=== PATIENT | female | born 1975 | race Caucasian/White ===

== ENCOUNTER → 2018-04-18 | Outpatient (CLI) | payer OTHER | END | disposition home or self-care (01) | LOC: KCIC MAMMO 12:17 | PROVIDERS: ATTEND Family Medicine | DX: Z12.31 Encounter for screening mammogram for malignant neoplasm of breast (principal) | CPT/HCPCS: 77067 ==

== ENCOUNTER → 2018-05-02 | Outpatient (CLI) | payer OTHER ==
--- NOTE | 2018-05-02 09:11 | KCIC ---
EXAM: Bilateral breast sonogram. HISTORY: 42-year-old female presents for sonographic evaluation of areas of nodularity demonstrated on a screening mammogram dated 04/18/2018. TECHNIQUE: Sonographic imaging of both breasts including all 4 quadrants and the retroareolar regions was performed. COMPARISON: None. FINDINGS: Sonographic imaging of the right breast demonstrates several small suspected complex cystic and fibrocystic lesions. For reference purposes, there is a 6.5 mm suspected fibrocystic lesion at the 10:00 position 4.5 cm from the nipple, 4.8 mm and 3.9 mm benign fibrocystic lesions at the 10:30 o'clock position 4 cm from the nipple, and a 3.1 mm benign fibrocystic lesion at the 9:30 o'clock position 7 cm from the nipple. Sonographic imaging of the left breast demonstrates several suspected complex cystic and fibrocystic lesions. For reference purposes, there is a 5.0 cm heterogeneous hypoechoic lesion at the 1:00 position 2 cm per the nipple, possibly a fibrocystic lesion or cluster of cysts. There is a simple cyst at the 1:00 position 3 cm from the nipple measuring 4.5 mm. There is a complex cyst or benign fibrocystic lesion at the 1:00 position 6 cm from the nipple measuring 5.9 mm. There is a complex cyst at the 3:00 position 5.5 cm from the nipple measuring 7.9 mm. IMPRESSION: 1. Multiple suspected complex cystic and fibrocystic lesions throughout both breasts, the largest of which measures 7.9 mm at the 3:00 position of the left breast. The sonographic appearance and multiplicity of these lesions favors benignity. These lesions likely correspond with areas of nodularity on the screening mammogram dated 04/18/2018. 2. BI-RADS Category 3: Probably benign finding(s). Short term follow up with a diagnostic diagnostic mammogram and sonogram in 6 months is recommended to confirm stability. Electronically signed by: Miranda Colunga MD (05/02/2018 9:08 AM) [facility]
== END | disposition home or self-care (01) ==
LOC: KCIC US 07:46
PROVIDERS: ATTEND Family Medicine
DX: R92.8 Other abnormal and inconclusive findings on diagnostic imaging of breast (principal)
CPT/HCPCS: 76641

== ENCOUNTER → 2019-08-01 | Outpatient (CLI) | payer OTHER ==
--- NOTE | 2019-08-02 16:05 | KCIC ---
Bilateral diagnostic digital mammograms: Reason for examination: 6 month follow-up for nodules. Comparison is made to previous studies dated 04/18/2018 and 05/18/2016. Interpretation was made with the benefit of CAD. The skin and nipples show no abnormalities. No abnormal axillary lymph nodes are seen. The breast parenchyma shows scattered fibroglandular density. (Breast density: Category B.) There are small nodular parenchymal densities bilaterally which show no significant change. There are no new dominant masses, suspicious calcifications or architectural distortions. Impression: No significant change in small nodules seen bilaterally. Ultrasound to follow. BI-RADS Category 0: Incomplete. Needs additional imaging evaluation. Bilateral breast ultrasound: Comparison is made to previous study dated 05/02/2018. Bilateral whole breast ultrasound including evaluation of all 4 quadrants and the retroareolar and axillary regions of both breasts was performed. In the right breast, there continues to be small hypoechoic fibrocystic lesion at the 10:00 position 4.5 cm from the nipple measuring 6.8 x 4.8 mm in size which is unchanged. In the 10:30 position 4 cm from the nipple, there are 2 small hypoechoic fibrocystic type lesions measuring 3.2 and 2.9 mm in greatest dimension which are stable. In the 9:30 position 7 cm from the nipple, there is a small 2.4 mm fibrocystic lesion which has decreased in size. No suspicious nodules are seen. No abnormal appearing lymph nodes are seen in the axilla. The left breast continues to show a hypoechoic lesion at the 1:00 position 2 cm from the nipple measuring 5.5 mm in greatest dimension which is stable. There is a 3.8 mm cyst at the 1:00 position 3 cm from the nipple. There is a small 5.8 mm cyst with some adjacent fibrocystic changes at the 1:00 position 6 cm from the nipple which is unchanged. There is a simple cyst at the 3:00 position 5.5 cm from the nipple measuring 8.3 mm in size. In the 2:00 position 7 cm from the nipple there is a small 7.8 mm fibrocystic lesion. No suspicious appearing lymph nodes are seen. IMPRESSION: Continued presence of small cystic and fibrocystic lesions which appear to be stable. No suspicious abnormalities are seen. Recommend routine mammographic follow-up. BI-RADS Category 2: Benign. "Our facility is accredited by the [employer] Mammography Program." This patient's information has been entered into a reminder system for the patient to be notified with the results of her examination and a target date for the next mammogram. Electronically signed by: Pilar James MD (08/02/2019 4:02 PM) [id number]
== END | disposition home or self-care (01) ==
LOC: KCIC MAMMO 07-18 07:51
PROVIDERS: ATTEND Family Medicine
DX: N60.02 Solitary cyst of left breast (principal); N64.89 Other specified disorders of breast
CPT/HCPCS: 76641; 77066

== ENCOUNTER → 2019-09-25 | Outpatient (CLI) | payer OTHER ==
--- NOTE | 2019-09-25 14:54 | KCIC ---
Complete abdominal ultrasound: History: Right upper quadrant pain and cramping, , Comparison: none Realtime grayscale sonographic images of the abdomen were performed. Liver: Moderate homogeneous increased echogenicity. No evidence of discrete lesion. Biliary tree: negative Gallbladder: negative Right Kidney: negative Impression: 1. Moderate hepatic steatosis Electronically signed by: Manoj Alonso MD (09/25/2019 2:51 PM) [id number]
== END | disposition home or self-care (01) ==
LOC: KCIC US 07:49
PROVIDERS: ATTEND Physician Assistant Medical
DX: K76.0 Fatty (change of) liver, not elsewhere classified (principal)
CPT/HCPCS: 76705

== ENCOUNTER → 2019-10-04 | Outpatient (CLI) | payer OTHER ==
[~2019-10-04] VITALS: Ht 162.6 cm; Wt 68.9 kg
[~2019-10-04] MED LIST: SINCALIDE 1.38 MCG in IV NORMAL SALINE 50ML 30 ML IV ONE
--- NOTE | 2019-10-04 12:19 | RAD ---
HEPATOBILIARY SCAN WITH EJECTION FRACTION 10/04/2019 12:15 PM History: Vomiting off and on x2 months Procedure: Serial static images are obtained of the liver and biliary system in the frontal projection following IV administration of 5.5 mCi of Technetium 99m Choletec. After filling of the gallbladder, 1.38 mcg of sincalide were infused over 30 minutes and dynamic imaging continued over this period. The gallbladder ejection fraction was calculated. Findings: There is prompt hepatic clearance of tracer from the blood pool. There is homogeneous distribution throughout the liver. The gallbladder ejection fraction measures 15% (normal gallbladder EF is 35% or greater). IMPRESSION: 1. The cystic duct and common bile duct are patent. 2. The gallbladder ejection fraction is abnormally low. Findings may indicate chronic cholecystitis or gallbladder dyskinesia. Electronically signed by: Vinicio Carcamo MD (10/04/2019 12:16 PM) [facility]
== END | disposition home or self-care (01) ==
LOC: NM 08:47
PROVIDERS: ATTEND Internal Medicine Gastroenterology
DX: R11.10 Vomiting, unspecified (principal)
CPT/HCPCS: 78227; A9537; J2805

== ENCOUNTER → 2020-03-06 | Outpatient (CLI) | payer OTHER | END | disposition home or self-care (01) | LOC: LAB 15:43 | PROVIDERS: ATTEND Surgery | DX: Z01.818 Encounter for other preprocedural examination (principal); Z11.59 Encounter for screening for other viral diseases; K82.8 Other specified diseases of gallbladder; Z91.048 Other nonmedicinal substance allergy status | CPT/HCPCS: U0003-CS ==

== ENCOUNTER 2020-03-10 10:13 | Day surgery (SDC) | payer OTHER ==
[~2020-03-10] VITALS: Ht 162.6 cm; Wt 67.0 kg
[~2020-03-10 10:13] MED LIST changes: +HYDROmorphone 2 MG/ML VIAL IV PRN; +IV RINGERS,LACTATED 1000ML 1,000 ML IV SCH; +LIDOCAINE 1% PF 2 ML VIAL. ID PRN; +MORPHINE SULFATE 2 MG/ML VIAL. IV PRN; +ONDANSETRON PF 4 MG/2 ML VIAL. IV PRN; +PROCHLORPERAZINE 10 MG/2 ML VIAL. IV PRN; -SINCALIDE 1.38 MCG in IV NORMAL SALINE 50ML 30 ML IV ONE; +fentaNYL PF VIAL 100 MCG/2 ML VIAL IV PRN
[2020-03-10] MEDS ORDERED: HYDR-2145 PO (10:45)
[2020-03-10] MEDS ORDERED: OMEP40CA45 PO (10:45)
[2020-03-10] MEDS ORDERED: SUCR1TAB PO (10:45)
[2020-03-10] MEDS ORDERED: NORE-87 PO (10:46)
[2020-03-10] MEDS ORDERED: LIDOCAINE 2% PF 5 ML VIAL. ONE (11:47)
[2020-03-10] MEDS ORDERED: ONDANSETRON PF 4 MG/2 ML VIAL. ONE (11:47)
[2020-03-10] MEDS ORDERED: DEXAMETHASONE SOD PHOS 4 MG/ML VIAL ONE (11:47)
[2020-03-10] MEDS ORDERED: PROPOFOL 10 MG/ML (20ML) VIAL. IV ONE (11:47)
[2020-03-10] MEDS ORDERED: MIDAZOLAM HCL/PF 2 MG/2 ML VIAL. ONE (11:47)
[2020-03-10] MEDS ORDERED: fentaNYL PF VIAL 100 MCG/2 ML VIAL ONE (11:48)
[2020-03-10] MEDS ORDERED: SCOPOLAMINE 1.5MG PATCH. TD ONE (12:28)
[2020-03-10] MEDS ORDERED: SCOPOLAMINE 1.5MG PATCH. TD SCH (12:30)
[2020-03-10] MEDS ORDERED: IOHEXOL 300 MG/ML 50 ML VIAL. ONE (12:52)
[2020-03-10] MEDS ORDERED: SURGICEL HEMOSTAT 4X8 EACH. ONE (12:52)
[2020-03-10] MEDS ORDERED: BUPIVACAINE MPF 0.5% 30 ML VIAL. ONE (12:52)
[2020-03-10] MEDS ORDERED: ceFAZolin 2GM PREMIX 2 GM/50 ML BAG IV ONE (13:00)
[2020-03-10] MEDS ORDERED: ROCURONIUM 50 MG/5 ML VIAL. ONE (13:07)
[2020-03-10] MEDS ORDERED: SEVOFLURANE 61 TO 120 MINUTES. IH ONE (13:19)
[2020-03-10] MEDS ORDERED: ESMOLOL 100 MG/10 ML VIAL. IVP ONE (13:19)
[2020-03-10] MEDS ORDERED: KETOROLAC 30 MG/ML VIAL. ONE (13:24)
[2020-03-10] MEDS ORDERED: 0.9 % SODIUM CHLORIDE 20 ML VIAL. IJ ONE (13:34)
[2020-03-10] MEDS ORDERED: GLYCOPYRROLATE 1 MG/5 ML VIAL. ONE (13:45)
[2020-03-10] MEDS ORDERED: NEOSTIGMINE METHYLSULFATE 5 MG/5 ML SYRINGE. ONE (13:45)
--- NOTE | 2020-03-10 13:56 | PDOC4 ---
Operative Note Operative Note Operative Note: Preoperative Diagnosis: Biliary dyskinesia Postoperative Diagnosis: Same Procedure: Laparoscopic cholecystectomy with intraoperative cholangiogram Surgeons: Aristides It Security Administrator: Kemal APARICIO Anesthesia: Gen. Estimated Blood Loss: 10 mL Specimen: Gallbladder to pathology Drains: None Complications: None Indications: The patient is a 44-year-old female has been experiencing marked nausea and mild abdominal pain. Her evaluation included a PIPIDA scan showing a low gallbladder ejection fraction. Surgical treatment was offered by means of a laparoscopic cholecystectomy. The risks of surgery were discussed which include bleeding, infection, bile duct injury, bile leak, pain, the potential for additional surgeries or procedures. The patient understands and would like to proceed. Description: The patient was taken to the operating room and laid supine on the operating table. General anesthesia was performed. The abdomen was prepped with ChloraPrep and draped in a standard surgical fashion. A small infraumbilical incision was made with a scalpel. The Veress needle was then inserted and a pneumoperitoneum was then created. A 5 mm trocar was then inserted and the laparoscope was introduced. In the upper midabdomen a 5 mm trocar was inserted and in the right upper quadrant two 2.3 mm mini lap graspers were inserted. The gallbladder was retracted cephalad. The cystic duct was dissected free from surrounding tissues. One clip was placed on the duct near the gallbladder junction. An opening was made in the duct and a cholangiocatheter placed within and secured with a clip. Using contrast dye and fluoroscopy an intraoperative cholangiogram was performed that appeared unremarkable. The clip and catheter were then withdrawn. Three clips were placed on the cystic duct and it was divided. The cystic artery was then identified, dissected free, doubly clipped and divided as well. The gallbladder was then mobilized away from the liver with cautery. The umbilical 5 millimeter trocar was exchanged for an 11 millimeter trocar. The gallbladder was then placed in an endoscopic bag and extracted at the umbilical trocar site. The fascia there was closed with an 0 Vicryl suture. All blood and irrigation fluid was suctioned and hemostasis was good. The remaining ports were removed and the pneumoperitoneum was relieved. The skin incisions were injected with half percent Marcaine with epinephrine, and all were closed using 4-0 Monocryl suture. Steri-Strips and dressings were then applied. The patient tolerated the procedure well and was sent to the recovery room in stable condition. At the end of the case all counts were correct. DICK SABA MD Mar 10, 2020 13:56
--- NOTE | 2020-03-10 13:57 | DISCH ---
DISCHARGE INSTRUCTIONS Condition on Discharge Condition on Discharge: Stable Activity After Discharge Activity Instructions for Disc: Other, see below (no lifting over 20 lbs X 2 weeks) Driving Instructions after Dis: Other, see below (no driving while taking pain meds) Weight Bearing Status after Di: Other, see below Diet after Discharge Diet after Discharge: Regular Wound Incision Care Wound/Incision Care: Other, see below (may remove bandaids and shower tomorrow) Follow-Up Follow up with: Dr Saba in office in 2 weeks, call for appt [phone] DICK SABA MD Mar 10, 2020 13:57
[2020-03-10] MEDS ORDERED: oxyCODONE/APAP 5/325 1 TAB TABLET PO ONE ×2 (14:00)
[2020-03-10] MEDS ORDERED: OXYC-325 PO (14:02)
--- NOTE | 2020-03-10 14:10 | RAD ---
EXAM: INTRAOPERATIVE CHOLANGIOGRAM. HISTORY: Intraoperative cholangiogram with cholecystectomy. COMPARISON: None. FINDINGS: 3 fluoroscopic images are obtained intraoperatively during injection of the cystic duct remnant after cholecystectomy. There are no filling defects to suggest retained stones. The common duct is mildly dilated. Fluoroscopy time 15 seconds. IMPRESSION: 1. Mild common duct dilatation. No evidence of retained stones. Electronically signed by: Hao Pond MD (03/10/2020 2:07 PM) [id number]
[2020-03-10 15:10] VITALS: BP 168/76
--- NOTE | 2020-03-12 16:07 | PATHOLOGY ---
[facility] Accession Number: [id number] . 01 Material submitted: . gallbladder - GALLBLADDER AND CONTENTS . 01 Clinical history: . Biliary dyskinesia . 02 Diagnosis: Gallbladder, cholecystectomy: - Chronic cholecystitis. 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 02 Comment: There are no calculi identified within the gallbladder lumen or specimen container. Sections of the gallbladder show patchy chronic inflammation. There is no evidence of malignancy. (JPM:farm supervisor; 03/12/2020) . 02 Electronically signed: . Obi Stark MD, Pathologist NPI- [id number] . 01 Gross description: . The specimen is received in formalin, labeled "Anabel Broussard, gallbladder and contents". Received is an intact gallbladder measuring 8.7 x 3.0 x 2.9 cm in greatest dimensions displaying a blue-velazquez serosal surface. Opening the specimen reveals a velvety, bile-stained mucosa with a gallbladder wall thickness of 0.1 cm. Calculi are not present, and no masses or lesions are noted grossly. Gum Worker sections, to include the proximal margin, are submitted in cassette A1. (CAA; 03/11/2020) QAC/QAC 03/11/2020 1831 Local . 02 Pathologist provided ICD-10: K81.1 . 02 CPT . 766978 Specimen Comment: A courtesy copy of this report has been sent to [phone], [phone] Specimen Comment: [id number] Specimen Comment: Report sent to / DR ADAMS Specimen Comment: A duplicate report has been generated due to demographic updates. Performed at: [address] [place] [address] [address], [place], [place] [id number] MD Fredrick Mon MD Phone: [phone] Performed at: [address] [id number] MD Obi Stark MD Phone: [phone]
== END 2020-03-10 15:37 | disposition home or self-care (01) ==
LOC: SURG 10:13
PROVIDERS: ATTEND Surgery
DX: K81.1 Chronic cholecystitis (principal); I10 Essential (primary) hypertension; Z98.890 Other specified postprocedural states; Z79.899 Other long term (current) drug therapy; Z87.891 Personal history of nicotine dependence
CPT/HCPCS: 47563; 74300; 81025; A7015; J0690; J1100; J1885; J2250; J2405; J2704; J2710; J3010; J3490; J7030; Q9967

== ENCOUNTER → 2021-11-09 | Outpatient (CLI) | payer BC ==
[2021-05-20 08:30] VITALS: BP 154/83
[~2021-11-09] MED LIST changes: +HYDR-2145 PO; -HYDROmorphone 2 MG/ML VIAL IV PRN; -IV RINGERS,LACTATED 1000ML 1,000 ML IV SCH; -LIDOCAINE 1% PF 2 ML VIAL. ID PRN; -MORPHINE SULFATE 2 MG/ML VIAL. IV PRN; +NORE-87 PO; +OMEP40CA7 PO; -ONDANSETRON PF 4 MG/2 ML VIAL. IV PRN; +OXYC-325 PO; -PROCHLORPERAZINE 10 MG/2 ML VIAL. IV PRN; +SUCR1TAB PO; -fentaNYL PF VIAL 100 MCG/2 ML VIAL IV PRN
--- NOTE | 2021-11-09 17:13 | KCIC ---
Bilateral digital screening mammograms: Reason for examination: Routine screening. Comparison is made to previous studies dated back to 05/18/2016. Interpretation was made with the benefit of CAD. The skin and nipples show no abnormalities. No abnormal axillary lymph nodes are seen. The breast par enchyma shows scattered fibroglandular density. (Breast density: Category B.) There continue to be sm all nodular densities bilaterally which correspond to cystic and fibrocystic nodules seen on previous ultrasound examinations. There are no new dominant masses, suspicious calcifications or architectura l distortions. Impression: No evidence of malignancy. Recommend routine screening. BI-RADS Category 2: Benign. "Our facility is accredited by the [employer] Mammography Program." This patient's information has been entered into a reminder system for the patient to be notified wit h the results of her examination and a target date for the next mammogram. Electronically signed by: Pilar James MD (11/09/2021 5:11 PM) [id number]
== END ==
LOC: KCIC MAMMO 12:54
PROVIDERS: ATTEND Family Medicine
DX: Z12.31 Encounter for screening mammogram for malignant neoplasm of breast (principal)
CPT/HCPCS: 77067